=== PATIENT | male | born 1990 | race Two or more races ===

== ENCOUNTER 2022-04-14 08:09 | Emergency (ER) | payer MEDICAID ==
[~2022-04-14] VITALS: Ht 177.8 cm; Wt 90.9 kg
[2022-04-14 08:28] VITALS: BP 131/93
[2022-04-14] MEDS ORDERED: KETO2CRE4 TOP (08:40)
[2022-04-14] MEDS ORDERED: CEPH-510 PO (08:40)
== END 2022-04-14 08:55 | disposition home or self-care (01) ==
LOC: ER 08:09
DX: B37.42 Candidal balanitis (principal); Z03.89 Encounter for observation for other suspected diseases and conditions ruled out; F12.90 Cannabis use, unspecified, uncomplicated